=== PATIENT | male | born 1990 | race Caucasian/White ===

== ENCOUNTER 2021-03-10 08:00 | Outpatient (CLI) | payer OTHER ==
[2021-03-10 22:43] LABS: CHLAMYDIA TRACHOMATIS DNA NEGATIVE (NEGATIVE); NEISSERIA GONORRHOEAE DNA NEGATIVE (NEGATIVE)
== END 2021-03-10 23:59 ==
LOC: LAB.N 08:00
PROVIDERS: ATTEND Family Medicine
DX: R39.9 Unspecified symptoms and signs involving the genitourinary system (principal)
CPT/HCPCS: 87086; 87491; 87591; 87661

== ENCOUNTER 2021-08-26 20:17 | Emergency (ER) | payer OTHER ==
--- NOTE | 2021-08-26 20:34 | ED Physician Documentation ---
PD HPI ABD PAIN - Stated complaint Stated Complaint: ABD PX - Chief complaint Chief Complaint: Abd Pain - Additional information Additional information: Patient is a 30-year-old male with past medical significant for diverticulitis presenting to the emergency department with left upper, left lower abdominal pain. Reports persistent dragging sensation in his left upper quadrant for the last several months. He does endorse for some dyspepsia and nighttime belching with burning in the back of his throat. Denies any known history of gastric reflux. Reports 1 bout of diverticulitis treated with antibiotics last March. States has had worsening pain without nausea or vomiting x1 week that became progressively worse this evening. Denies fever. Review of Systems Ten Systems: 10 systems reviewed and negative Constitutional: denies: Fever Eyes: denies: Loss of vision Ears: denies: Loss of hearing Nose: denies: Rhinorrhea / runny nose Throat: denies: Dental pain / toothache Cardiac: denies: Chest pain / pressure Respiratory: denies: Dyspnea GI: reports: Abdominal Pain : denies: Dysuria PD PAST MEDICAL HISTORY - Past Medical History Past Medical History: Yes Cardiovascular: None GI: Diverticulitis - Present Medications Home Medications: Ambulatory Orders Medication Instructions Recorded Confirmed Pantoprazole [Protonix] 40 mg ORAL DAILY #30 tablet 08/26/21 polyethylene glycoL 3350 [Miralax] 17 gm PO DAILY PRN #1 bottle 08/26/21 - Allergies Allergies/Adverse Reactions: Allergies Allergy/AdvReac Type Severity Reaction Status Date / Time Penicillins Allergy Anaphylaxis Verified 08/26/21 21:00 PD ED PE NORMAL - Vitals Vital signs reviewed: Yes - General General: Alert and oriented X 3 - HEENT HEENT: Atraumatic - Neck Neck: Supple, no meningeal sign - Cardiac Cardiac: RRR - Respiratory Respiratory: No respiratory distress - Abdomen Abdomen: Normal bowel sounds, Soft, Non tender, Non distended, No organomegaly - Male Male : Deferred - Rectal Rectal: Deferred - Derm Derm: Warm and dry - Extremities Extremities: No deformity - Neuro Neuro: Alert and oriented X 3, No motor deficit, No sensory deficit Results - Vitals Vitals: Vital Signs - 24 hr 08/26/21 20:21 Temperature 36.8 C Heart Rate 86 Respiratory 14 Rate Blood Pressure 157/67 H O2 Saturation 98 Oxygen O2 Source Room air - Labs Labs: Laboratory Tests 05/08/26/21 08/26/21 20:34 20:34 20:34 WBC 8.4 RBC 4.79 Hgb 14.7 Hct 43.5 MCV 90.8 MCH 30.7 MCHC 33.8 RDW 12.3 Plt Count 238 MPV 10.8 Neut # (Auto) 5.3 Lymph # (Auto) 2.4 [place] # (Auto) 0.5 Eos # (Auto) 0.1 Baso # (Auto) 0.0 Absolute Nucleated RBC 0.00 Nucleated RBC % 0.0 Sodium 137 Potassium 3.7 Chloride 98 L Carbon Dioxide 29 Anion Gap 10.0 BUN 13 Creatinine 1.0 Estimated GFR (MDRD) 87 L Glucose 122 H Calcium 9.4 Total Bilirubin 0.5 AST 15 ALT 15 Alkaline Phosphatase 72 Total Protein 7.9 Albumin 4.7 Globulin 3.2 Albumin/Globulin Ratio 1.5 Lipase 37 Urine Color YELLOW Urine Clarity CLEAR Urine pH 6.0 Ur Specific [place] 1.020 Urine Protein NEGATIVE Urine Glucose (UA) NEGATIVE Urine Ketones NEGATIVE Urine Occult Blood NEGATIVE Urine Nitrite NEGATIVE Urine Bilirubin NEGATIVE Urine Urobilinogen 0.2 (NORMAL) Ur Leukocyte Esterase NEGATIVE Ur Microscopic Review NOT INDICATED Urine Culture Comments NOT INDICATED PD MEDICAL DECISION MAKING - ED course Complexity details: reviewed results, d/w patient ED course: Patient is 30-year-old male with past medical significant for diverticulitis presenting to the emergency department with left upper, left lower abdominal pain. Afebrile, hemodynamically stable on arrival to the emergency department. Some focal tenderness in the left upper quadrant without guarding, rebound or rigidity noted on exam. Labs obtained all within normal limits are nonactionable. CT of the abdomen pelvis demonstrated some thickening of the gastric wall some consistent with gastritis. Patient received some medication for pain and GI cocktail as well as dose IV Protonix. Will discharge on course of Protonix as well as MiraLAX for increased bowel regimen. Counseled on a small meals before bed, avoiding nonsteroidal anti-inflammatory medications, alcohol, excessively spicy foods. Encourage careful follow-up with primary care and to return to the emergency department for new or worsening symptoms. Departure - Departure Disposition: 01 Home, Self Care Clinical Impression: Gastritis Instructions: ED PUD Vs Gastritis Prescriptions: polyethylene glycoL 3350 [Miralax] 17 gm PO DAILY PRN #1 bottle PRN Reason: Constipation Pantoprazole [Protonix] 40 mg ORAL DAILY #30 tablet Comments: Thank you for allowing us to care for you this evening at [facility]. Prescription sent electronically to [facility]. All the testing performed in the emergency department today including her blood work and a CT of your abdomen pelvis were all very reassuring. The CT did show some indications of gastritis, form of inflammation on the inner lining of your stomach. I would like you to begin a course of oral antiacid medication. I have also written you for MiraLAX, medication that can be used as a bowel r egimen. I recommend increasing your intake and fiber full fluids and natural probiotics at home. Please make a follow-up appoint with your primary care doctor soon as possible. If it anytime you develop any new or worsening symptoms please not hesitate to return.
[2021-08-26 20:43] LABS: BILIRUBIN,URINE NEGATIVE (NEGATIVE); GLUCOSE, URINE (UA) NEGATIVE (NEGATIVE); KETONES,URINE (UA) NEGATIVE (NEGATIVE); LEUKOCYTE ESTERASE, URINE NEGATIVE (NEGATIVE); NITRITE,URINE NEGATIVE (NEGATIVE); OCCULT BLOOD,URINE NEGATIVE (NEGATIVE); PROTEIN,URINE NEGATIVE (NEGATIVE); UROBILINOGEN,URINE 0.2 (NORMAL) E.U./dL (NORMAL)
[2021-08-26] MEDS ORDERED: SODIUM CHLORIDE 0.9% 1,000 ML IV STA (20:43)
[2021-08-26] MEDS ORDERED: ONDANSETRON 4 MG/2 ML VIAL IVP STA (20:43)
[2021-08-26] MEDS ORDERED: MORPHINE 10 MG/ML VIAL IVP STA (20:43)
[2021-08-26 20:44] LABS: CLARITY,URINE CLEAR (CLEAR)
[2021-08-26 20:54] LABS: ALBUMIN 4.7 g/dL (3.2-5.5); ALBUMIN/GLOBULIN RATIO 1.5 (1.0-2.2); BILIRUBIN,TOTAL 0.5 mg/dL (0.2-1.0); CALCIUM 9.4 mg/dL (8.5-10.3); POTASSIUM 3.7 mmol/L (3.5-5.0); TOTAL PROTEIN 7.9 g/dL (6.7-8.2)
[2021-08-26 20:56] LABS: HCT - HEMATOCRIT 43.5 % (42.0-52.0); HGB - HEMOGLOBIN 14.7 g/dL (14.0-18.0); LYMPHOCYTES % (AUTO) 29.1 %; MEAN CORPUSCULAR HEMOGLOBIN 30.7 pg (27.0-31.0); MEAN CORPUSCULAR HGB CONC 33.8 g/dL (32.0-36.0); MEAN CORPUSCULAR VOLUME 90.8 fL (80.0-94.0); MEAN PLATELET VOLUME 10.8 fL (7.4-11.4); NEUTROPHILS % (AUTO) 63.6 %; PLT - PLATELET COUNT 238 10^3/uL (130-450); RED BLOOD COUNT 4.79 10^6/uL (4.70-6.10); RED CELL DISTRIBUTION WIDTH 12.3 % (12.0-15.0); WHITE BLOOD COUNT 8.4 x10^3/uL (4.8-10.8)
[2021-08-26 20:57] LABS: BASOPHILS % (AUTO) 0.4 %; EOSINOPHILS # (AUTO) 0.1 10^3/uL (0.0-0.7); EOSINOPHILS % (AUTO) 0.7 %; LYMPHOCYTES # (AUTO) 2.4 10^3/uL (1.5-3.5); MONOCYTES # (AUTO) 0.5 10^3/uL (0.0-1.0); NEUTROPHILS # (AUTO) 5.3 10^3/uL (1.5-6.6)
[2021-08-26] MEDS ORDERED: IOVERSOL 320 100 ML VIAL IVP ONE ×2 (20:59→21:23)
--- NOTE | 2021-08-26 22:12 | CT Report ---
PROCEDURE: Abdomen/Pelvis W INDICATIONS: abd pain, hx diverticulitis CONTRAST: IV CONTRAST: Optiray 320 ml: 100 PO CONTRAST: *NO PO CONTRAST TECHNIQUE: After the administration of intravenous contrast, 5 mm thick sections acquired from the diaphragms to the symphysis. 5 mm thick coronal and sagittal reformats were acquired. For radiation dose reducti on, the following was used: automated exposure control, adjustment of mA and/or kV according to everette ent size. COMPARISON: None. FINDINGS: Image quality: Excellent. Lung bases: Unremarkable. Heart: Heart is normal in size. ABDOMEN: Liver: No mass lesion. Gallbladder: Within normal limits without calcified gallstones. Biliary ducts: No biliary ductal dilatation. Pancreas: Unremarkable. Spleen: Normal in size. Adrenal Glands: No adrenal nodules. Kidneys and Ureters: No hydronephrosis. Stomach and Bowel:There is mild gastric wall thickening most prominent within the antrum. Small sari l is normal in caliber and overall thickness. The appendix is normal in appearance. Colonic diverticu losis is demonstrated without acute diverticulitis. Peritoneum: No abnormal intraperitoneal fluid. No free air. Ventral Wall: No hernia. Abdominal Nodes: No retroperitoneal or mesenteric adenopathy by size criteria. Vessels: Aorta and inferior vena cava are normal in size. PELVIS: Pelvic Organs: Unremarkable. Bladder: Unremarkable. Pelvic Nodes: No enlarged lymph nodes. Miscellaneous: No inguinal hernias are seen. Bones: Visualized osseous structures demonstrate no suspicious focal lesions. IMPRESSION: 1. Mild gastric wall thickening most prominent in the antrum estimated with a gastritis. 2. Colonic diverticulosis without acute diverticulitis. Reviewed by: Baljinder Costello MD on 08/26/2021 10:10 PM PDT Approved by: Baljinder Costello MD on 08/26/2021 10:10 PM PDT Station ID: [id number]
[2021-08-26] MEDS ORDERED: PANTOPRAZOLE 40 MG VIAL IVP STA (22:15)
[2021-08-26 22:40] VITALS: BP 128/65
== END 2021-08-26 22:48 | disposition home or self-care (01) ==
LOC: ED 20:17
DX: K29.70 Gastritis, unspecified, without bleeding (principal)
CPT/HCPCS: 36415; 74177; 80053; 81003; 83690; 85025; 96374; 96375; 99284; Q9967; 81001; 87086